=== PATIENT | male | born 1960 | race Caucasian/White ===

== ENCOUNTER 2021-01-08 03:31 | Emergency (ER) | payer OTHER, SELFPAY ==
[2021-01-08] VITALS (18 sets, daily range): BP systolic 119–201; BP diastolic 68–100; PULSE 40–85; RESP 12–24; TEMP 36.7–36.8; O2SAT 97–100; BMI 22.3
--- NOTE | 2021-01-08 | ECG_ITS ---
Test Reason : BRADYCARDIA Blood Pressure : / mmHG Vent. Rate : 070 BPM Atrial Rate : 070 BPM P-R Int : 160 ms QRS Dur : 092 ms QT Int : 424 ms P-R-T Axes : 067 005 057 degrees QTc Int : 457 ms Normal sinus rhythm Normal ECG When compared with ECG of 08-JAN-2021 04:08, Premature ventricular complexes are no longer Present T wave inversion no longer evident in Inferior leads QT has shortened Referred By: Ana Justin Electronically Signed By:CAMRON ELIZABETH
--- NOTE | 2021-01-08 | ECG_ITS ---
Test Reason : SYNCOPE Blood Pressure : / mmHG Vent. Rate : 079 BPM Atrial Rate : 079 BPM P-R Int : 150 ms QRS Dur : 094 ms QT Int : 462 ms P-R-T Axes : 089 004 024 degrees QTc Int : 529 ms Normal sinus rhythm with Premature ventricular complexes in a pattern of bigeminy Nonspecific T wave abnormality Prolonged QT Right atrial enlargement Abnormal ECG No previous ECGs available Referred By: Ana Justin Electronically Signed By:CAMRON ELIZABETH
--- NOTE | ~2021-01-08 | CT_ITS ---
EXAMINATION: NONCONTRAST HEAD CT NONCONTRAST CERVICAL SPINE CT INDICATION INFORMATION: Syncopal episodes. COMPARISON: None TECHNIQUE: Separate noncontrast CT examinations of the head and cervical spine were performed. Coronal and sagittal images were created for each examination at the technologist workstation. This CT examination was performed using dose optimization techniques as appropriate, variously including the following: *Automated exposure control *Adjustment of mA and/or kV according to patient size (this includes techniques or standardized protocols for targeted exams where dose is matched to indication/reason for exam; i.e. extremities or head) *Use of iterative reconstruction technique DLP: 998 mGy-cm FINDINGS: Head: There is no evidence of acute intracranial hemorrhage or territorial infarction. No abnormal mass effect or midline shift is seen. Fox to white matter differentiation is well preserved. No extra-axial fluid collections are identified. No hydrocephalus. No significant volume loss. There is no abnormal attenuation within the brain parenchyma. No acute osseous or soft tissue abnormality. The mastoid air cells and visualized portions of the paranasal sinuses are well aerated. Cervical spine: There is anatomic alignment of the vertebral bodies and posterior elements. The atlantoaxial and atlantooccipital articulations are intact. Vertebral body heights are maintained. Mild disc space narrowing at C5-C6 with small endplate osteophytes. No evidence of acute fracture. No prevertebral soft tissue swelling. Mild paraseptal emphysema noted at the lung apices. Tracheal secretions noted. Gas-filled area anterior to the left lung is likely associated with the lung extending into this region more inferiorly, non the [id number] of this study. The thyroid gland is unremarkable. CT/CT head/brain wo con IMPRESSION: 1. No acute intracranial findings. 2. No acute fracture or malalignment of the cervical spine. Mild degenerative change.
--- NOTE | ~2021-01-08 | CT_ITS ---
EXAMINATION: NONCONTRAST HEAD CT NONCONTRAST CERVICAL SPINE CT INDICATION INFORMATION: Syncopal episodes. COMPARISON: None TECHNIQUE: Separate noncontrast CT examinations of the head and cervical spine were performed. Coronal and sagittal images were created for each examination at the technologist workstation. This CT examination was performed using dose optimization techniques as appropriate, variously including the following: *Automated exposure control *Adjustment of mA and/or kV according to patient size (this includes techniques or standardized protocols for targeted exams where dose is matched to indication/reason for exam; i.e. extremities or head) *Use of iterative reconstruction technique DLP: 998 mGy-cm FINDINGS: Head: There is no evidence of acute intracranial hemorrhage or territorial infarction. No abnormal mass effect or midline shift is seen. Fox to white matter differentiation is well preserved. No extra-axial fluid collections are identified. No hydrocephalus. No significant volume loss. There is no abnormal attenuation within the brain parenchyma. No acute osseous or soft tissue abnormality. The mastoid air cells and visualized portions of the paranasal sinuses are well aerated. Cervical spine: There is anatomic alignment of the vertebral bodies and posterior elements. The atlantoaxial and atlantooccipital articulations are intact. Vertebral body heights are maintained. Mild disc space narrowing at C5-C6 with small endplate osteophytes. No evidence of acute fracture. No prevertebral soft tissue swelling. Mild paraseptal emphysema noted at the lung apices. Tracheal secretions noted. Gas-filled area anterior to the left lung is likely associated with the lung extending into this region more inferiorly, non the [id number] of this study. The thyroid gland is unremarkable. CT/CT cervical spine wo con IMPRESSION: 1. No acute intracranial findings. 2. No acute fracture or malalignment of the cervical spine. Mild degenerative change.
[2021-01-08] MEDS: Magnesium Sulfate/H2O 2 GM/50 ML PIGGYBACK IV (04:01)
[2021-01-08 04:09] LABS: Basophils Percent Auto 0.3 % (0-2); Eosinophils Absolute Auto 0.2 X10*3/uL (0.0-0.4); Eosinophils Percent Auto 1.1 % (0-4); Hematocrit 38.2 % (42-52); Hemoglobin 13.2 g/dl (14.0-18.0); Imm Gran Abs Auto 0.04 X10*3/uL (0.00-0.03); Imm Gran Pct Auto 0.3 % (0.0-0.4); Lymphocytes Absolute Auto 3.9 X10*3/uL (1.2-4.9); Lymphocytes Percent Auto 29.1 % (20-40); MANUAL DIFF FLAG NO; Mean Corpuscular HGB Conc 34.6 g/dl (31.0-36.0); Mean Corpuscular Hemoglobin 31.2 pg (27.0-33.0); Mean Corpuscular Volume 90.3 fL (80-98); Mean Platelet Volume 9.9 fL (9.4-12.4); Monocytes Absolute Auto 0.9 X10*3/uL (0.1-1.2); Monocytes Percent Auto 6.9 % (2-11); Neutrophils Absolute Auto 8.3 X10*3/uL (2.0-8.3); Neutrophils Percent Auto 62.3 % (45-73); Platelet Count 224 X10*3/uL (160-400); Red Blood Count 4.23 X10*6/uL (4.60-5.80); Red Cell Distribution Width 13.1 % (11.0-16.0); White Blood Count 13.4 X10*3/uL (4.8-10.8)
--- NOTE | 2021-01-08 04:09 | PC.NURSE ---
This RN rec'd limited report from EMS 2/2 language barrier. Pt Italian speaking only and EMS Burmese speaking only. This RN to bedside to perform triage assessment with use of video staff interpreter. Pt placed on vehicle body sander. Pt with frequent PVCs, appears to be in bigeminy. This RN obtaining EKG and notes pt to have few second run of vtach on bedside monitor. Dr Justin, patient services assistant Lo Khan RN and SIXTO [place] to bedside. 2 PIV established. Labs obtained. Mag 2g hung per Dr Justin. Pacer pads placed onto patient anterior-posterior. Pt connected to zoll.
[2021-01-08 04:14] LABS: INTERNATIONAL NORM RATIO 1.2 (0.9-1.1); Prothrombin Time 13.3 SEC (9.9-13.0)
[2021-01-08] MEDS: ondansetron HCL 4 MG/2 ML VIAL IVPUSH (04:17)
[2021-01-08 04:26] LABS: Ethanol < 10 mg/dL
[2021-01-08 04:31] LABS: COVID-19 Test Negative (Negative); IDNOW Serial# 9DD0AD1C
[2021-01-08 04:33] LABS: B Type Natriuretic Peptide 59 pg/mL (<100); Troponin-I High Sensitivity 22.2 ng/L (<3.5-35.0)
[2021-01-08] MEDS: 0.9 % Sodium Chloride 1,000 ML 999 ML IV (04:39)
[2021-01-08 04:44] LABS: Alanine Aminotransferase 23 U/L (0-40); Albumin Level 4.7 g/dL (3.5-5.0); Alkaline Phosphatase 77 U/L (39-117); Anion Gap 15 (12-20); Aspartate Amino Transferase 23 U/L (5-37); Bilirubin Direct 0.5 mg/dL (0.0-0.5); Bilirubin Total 1.3 mg/dL (0.0-1.0); Blood Urea Nitrogen 15 mg/dL (9-16); Calcium 9.7 mg/dL (8.4-10.2); Carbon Dioxide 28 mmol/L (22-29); Chloride 100 mmol/L (96-108); Creatinine Clr Calc Pharmacy 89.5; Estimated Glomerular Filt Rate > 60; Glucose Random 112 mg/dL (60-115); Magnesium 1.9 mg/dL (1.6-2.6); Potassium 2.9 mmol/L (3.3-5.1); Sodium 140 mmol/L (135-145); Total Protein 7.8 g/dL (6.5-8.0)
[2021-01-08] MEDS: Lidocaine HCl/PF 100 MG/5 ML SYRINGE 50 MG IV (05:04)
[2021-01-08] MEDS: Lidocaine HCl/D5W 2 GM/250 ML IV.SOLN IVCONT (05:05)
[2021-01-08] MEDS: Potassium Chloride Packet 20 MEQ PACKET 40 MEQ PO (05:05)
[2021-01-08] MEDS: Potassium Chloride/H20 10 MEQ/100 ML PIGGYBACK 100 MEQ IV ×4 (05:09→08:28)
--- NOTE | 2021-01-08 05:29 | PC.NURSE ---
VS documented with HR in 40s were taken manually as radial pulses.
[2021-01-08 05:40] LABS: Amphetamine Screen Urine Not Detected (Not Detect); Barbiturates, Urine Not Detected (Not Detect); Benzodiazepines Screen Urine POSITIVE (Not Detect); Cannabinoid Screen Urine POSITIVE (Not Detect); Cocaine Screen Urine POSITIVE (Not Detect); Fentanyl, urine POSITIVE (Not Detect); Opiate Screen Urine Not Detected (Not Detect); Phencyclidine Screen Urine Not Detected (Not Detect)
--- NOTE | 2021-01-08 05:54 | ED_ITS ---
HPI - General Adult General Chief complaint: Syncope Stated complaint: Fall Time Seen by Provider: 01/08/21 03:59 Source: patient and EMS Mode of arrival: EMS Limitations: no limitations History of Present Illness HPI narrative: Patient comes to the emergency room complaining of for syncopal episodes. Patient states that he is at risk, and then wakes up on the floor. The last time that he fell, he hit his head, complaining of localized pain. Patient states that he does not remember passing out. Only remembers his daughter waking him up. Patient denies chest pain, no shortness of breath. Patient states that prior to the syncopal episodes, he was feeling dizzy, feeling that his vision was getting blurry, sometimes it resolved without passing out, but other times he would be completely unconscious. At this time, patient states that he is not dizzy, no chest pain or shortness of breath. Patient states that to his knowledge he has no cardiac history. Related Data Home Medications Medication Instructions Recorded Confirmed alprazolam 2 mg tablet 2 mg PO TID 01/08/21 01/08/21 methadone 10 mg/mL oral concentrate 105 mg 01/08/21 Allergies Allergy/AdvReac Type Severity Reaction Status Date / Time No Known Allergies Allergy Verified 01/08/21 03:41 Review of Systems Review of Systems: Constitutional : No Weight loss, No Fever, No Chills, No Night Sweats, No Fatigue, No Malaise ENT/Mouth : No Hearing loss, No Ear Pain, No Nasal Congestion, No Sinus Pain, No Hoarseness, No sore throat, No Rhinorrhea, No Swallowing Difficulty Eyes: No Eye Pain, No Swelling, No Redness, No Foreign Body, No Discharge, No Vision Changes Cardiovascular : No Chest Pain, No SOB, No Dyspnea on Exertion, No Orthopnea, no edema, complaining of occasional palpitations, complaining of syncopal episodes at rest Respiratory : No Cough, No Sputum, No Wheezing, No Smoke Exposure, No Dyspnea Gastrointestinal : No Nausea, No Vomiting, No Diarrhea, No Constipation, No abdominal Pain, No Hematochezia, No Melena Genitourinary : no irregular bleeding, No Dysuria, No Urinary Frequency, No Hematuria, No Urinary Incontinence, No Urgency, No Flank Pain, No Urinary Flow Changes, No Hesitancy Musculoskeletal : No joint pain, No Myalgias, No Joint Swelling Skin : No Skin Lesions, No rash Neuro : No Weakness, No Numbness, No Paresthesias, multiple episodes of loss of consciousness, dizziness, multiple falls landing on his head. Psych : No Anxiety/Panic, No Depression, No SI/HI/AH/VH, No Social Issues, Heme/Lymph: No Bruising, No Bleeding,No Lymphadenopathy Endocrine : No Polyuria, No Polydipsia, No Temperature Intolerance [facility] Social History Social History Patient Tobacco Use Status: Current everyday Tobacco user Use of substances other than those prescribed or required for medical reasons: Yes Substance Use Type: Crack/Cocaine Advance Directives: No Physical Exam Vital Signs: Vital Signs: Last Vital Signs Temp 98.2 F 01/08/21 03:58 Pulse 74 01/08/21 06:47 Resp 18 01/08/21 06:47 BP 130/81 01/08/21 06:47 Pulse Ox 98 01/08/21 06:47 Body Mass Index 22.3 Const: Other: Appearance: Alert. Oriented X3. No acute distress. Eyes: Pupils equal, round and reactive to light. ENT: Pharynx normal. Neck: On C-collar, no pain to palpation over the C-spine, no palpable step-offs CVS: Normal heart rate and rhythm. Pulses normal. Normal S1 and S2 Respiratory: No respiratory distress. Breath sounds normal. No Wheezing. No rales Abdomen: Soft and nontender. No rigidity. No distention. good BS x4 Skin: Skin warm mildly clammy, normal skin color. Patient does have ecchymosis to the forehead on the right side, abrasions, no deep lacerations Extremities: No lower extremity edema. No lower extremity edema. No Lacerations. No Rash Neuro: Oriented X 3. No motor deficit. No sensory deficit. Moving all extermities. No slurred speech. Course Course Course Narrative: Patient has had multiple episodes, patient's rhythm on EKG varies between sinus rhythm, bigeminy, QTC ranges between 400 to 595. Patient had multiple episodes of polymorphic ventricular tachycardia. Patient was given 1 dose of IV magnesium 2 g, patient converted into sinus rhythm. But soon after, patient return to bigeminy. Patient blood pressure has been constantly elevated between 172-100 systolic. I discussed the case with Dr. Shearer and Dr. Tomlin. Patient was given 1 bolus of 50 mg of lidocaine, patient was started on a lidocaine drip at 2 milligrams/minute. Patient converted into sinus rhythm. Patient was noted to have hypokalemia as well. 40 meq of p.o. potassium were given p.o., and patient is getting 10 meq of potassium IV per hour, 4 bags in total are to be given back to back Eventually, it is likely that the patient will need a pacemaker Once patient became stable, we were able to scan the patient's head and neck. Unfortunately, we do not have ICU beds available, patient is to be transferred to [facility] I discussed the pt wiht Dr. Fall from [facility] cardiology, transfer/cardiology call back pending. Patient continues on 2 milligrams/minute of lidocaine, rickie ent asymptomatic, stable, heart rate 76, blood pressure 147/79, sinus rhythm Sign out given to Dr. Garcia Medical Decision Making Lab Data Result diagrams: 01/08/21 04:03 01/08/21 04:03 Labs: Lab Results 01/08/21 01/08/21 01/08/21 Range/Units 04:03 04:03 04:03 WBC 13.4 H (4.8-10.8) X10*3/uL RBC 4.23 L (4.60-5.80) X10*6/uL Hgb 13.2 L (14.0-18.0) g/dl Hct 38.2 L (42-52) % MCV 90.3 (80-98) fL MCH 31.2 (27.0-33.0) pg MCHC 34.6 (31.0-36.0) g/dl RDW 13.1 (11.0-16.0) % Plt Count 224 (160-400) X10*3/uL MPV 9.9 (9.4-12.4) fL Immature Gran % (Auto) 0.3 (0.0-0.4) % Neut % (Auto) 62.3 (45-73) % Lymph % (Auto) 29.1 (20-40) % [place] % (Auto) 6.9 (2-11) % Eos % (Auto) 1.1 (0-4) % Baso % (Auto) 0.3 (0-2) % Lymph # (Auto) 3.9 (1.2-4.9) X10*3/uL [place] # (Auto) 0.9 (0.1-1.2) X10*3/uL Eos # (Auto) 0.2 (0.0-0.4) X10*3/uL Baso # (Auto) 0.0 (0.0-0.2) X10*3/uL Abs Immat Gran (auto) 0.04 H (0.00-0.03) X10*3/uL Absolute Neuts (auto) 8.3 (2.0-8.3) X10*3/uL Absolute Nucleated RBC 0.000 (0.0-0.012) X10*3/uL Nucleated RBC % (auto) 0.0 (0.0-0.2) /100WBC PT 13.3 H (9.9-13.0) SEC INR 1.2 H (0.9-1.1) Sodium 140 (135-145) mmol/L Potassium 2.9 L (3.3-5.1) mmol/L Chloride 100 (96-108) mmol/L Carbon Dioxide 28 (22-29) mmol/L Anion Gap 15 (12-20) BUN 15 (9-16) mg/dL Creatinine 0.75 (0.5-1.4) mg/dL Estim Creat Clear Calc 89.5 Estimated GFR > 60 Random Glucose 112 (60-115) mg/dL Calcium 9.7 (8.4-10.2) mg/dL Magnesium 1.9 (1.6-2.6) mg/dL Total Bilirubin 1.3 H (0.0-1.0) mg/dL Direct Bilirubin 0.5 (0.0-0.5) mg/dL AST 23 (5-37) U/L ALT 23 (0-40) U/L Alkaline Phosphatase 77 (39-117) U/L Troponin I High Sens (<3.5-35.0) ng/L B-Natriuretic Peptide (<100) pg/mL Total Protein 7.8 (6.5-8.0) g/dL Albumin 4.7 (3.5-5.0) g/dL Urine Opiates Screen (Not Detect) Urine Fentanyl Screen (Not Detect) Ur Barbiturates Screen (Not Detect) Ur Phencyclidine Scrn (Not Detect) Ur Amphetamines Screen (Not Detect) U Benzodiazepines Scrn (Not Detect) Urine Cocaine Screen (Not Detect) U Marijuana (THC) Screen (Not Detect) Ethyl Alcohol mg/dL COVID-19 (HAZEL) (Negative) COVID-19 Clin Com 01/08/21 01/08/21 01/08/21 Range/Units 04:03 04:03 04:08 WBC (4.8-10.8) X10*3/uL RBC (4.60-5.80) X10*6/uL Hgb (14.0-18.0) g/dl Hct (42-52) % MCV (80-98) fL MCH (27.0-33.0) pg MCHC (31.0-36.0) g/dl RDW (11.0-16.0) % Plt Count (160-400) X10*3/uL MPV (9.4-12.4) fL Immature Gran % (Auto) (0.0-0.4) % Neut % (Auto) (45-73) % Lymph % (Auto) (20-40) % [place] % (Auto) (2-11) % Eos % (Auto) (0-4) % Baso % (Auto) (0-2) % Lymph # (Auto) (1.2-4.9) X10*3/uL [place] # (Auto) (0.1-1.2) X10*3/uL Eos # (Auto) (0.0-0.4) X10*3/uL Baso # (Auto) (0.0-0.2) X10*3/uL Abs Immat Gran (auto) (0.00-0.03) X10*3/uL Absolute Neuts (auto) (2.0-8.3) X10*3/uL Absolute Nucleated RBC (0.0-0.012) X10*3/uL Nucleated RBC % (auto) (0.0-0.2) /100WBC PT (9.9-13.0) SEC INR (0.9-1.1) Sodium (135-145) mmol/L Potassium (3.3-5.1) mmol/L Chloride (96-108) mmol/L Carbon Dioxide (22-29) mmol/L Anion Gap (12-20) BUN (9-16) mg/dL Creatinine (0.5-1.4) mg/dL Estim Creat Clear Calc Estimated GFR Random Glucose (60-115) mg/dL Calcium (8.4-10.2) mg/dL Magnesium (1.6-2.6) mg/dL Total Bilirubin (0.0-1.0) mg/dL Direct Bilirubin (0.0-0.5) mg/dL AST (5-37) U/L ALT (0-40) U/L Alkaline Phosphatase (39-117) U/L Troponin I High Sens 22.2 (<3.5-35.0) ng/L B-Natriuretic Peptide 59 (<100) pg/mL Total Protein (6.5-8.0) g/dL Albumin (3.5-5.0) g/dL Urine Opiates Screen (Not Detect) Urine Fentanyl Screen (Not Detect) Ur Barbiturates Screen (Not Detect) Ur Phencyclidine Scrn (Not Detect) Ur Amphetamines Screen (Not Detect) U Benzodiazepines Scrn (Not Detect) Urine Cocaine Screen (Not Detect) U Marijuana (THC) Screen (Not Detect) Ethyl Alcohol < 10 mg/dL COVID-19 (HAZEL) Negative (Negative) COVID-19 Clin Com See Note 01/08/21 Range/Units 05:11 WBC (4.8-10.8) X10*3/uL RBC (4.60-5.80) X10*6/uL Hgb (14.0-18.0) g/dl Hct (42-52) % MCV (80-98) fL MCH (27.0-33.0) pg MCHC (31.0-36.0) g/dl RDW (11.0-16.0) % Plt Count (160-400) X10*3/uL MPV (9.4-12.4) fL Immature Gran % (Auto) (0.0-0.4) % Neut % (Auto) (45-73) % Lymph % (Auto) (20-40) % [place] % (Auto) (2-11) % Eos % (Auto) (0-4) % Baso % (Auto) (0-2) % Lymph # (Auto) (1.2-4.9) X10*3/uL [place] # (Auto) (0.1-1.2) X10*3/uL Eos # (Auto) (0.0-0.4) X10*3/uL Baso # (Auto) (0.0-0.2) X10*3/uL Abs Immat Gran (auto) (0.00-0.03) X10*3/uL Absolute Neuts (auto) (2.0-8.3) X10*3/uL Absolute Nucleated RBC (0.0-0.012) X10*3/uL Nucleated RBC % (auto) (0.0-0.2) /100WBC PT (9.9-13.0) SEC INR (0.9-1.1) Sodium (135-145) mmol/L Potassium (3.3-5.1) mmol/L Chloride (96-108) mmol/L Carbon Dioxide (22-29) mmol/L Anion Gap (12-20) BUN (9-16) mg/dL Creatinine (0.5-1.4) mg/dL Estim Creat Clear Calc Estimated GFR Random Glucose (60-115) mg/dL Calcium (8.4-10.2) mg/dL Magnesium (1.6-2.6) mg/dL Total Bilirubin (0.0-1.0) mg/dL Direct Bilirubin (0.0-0.5) mg/dL AST (5-37) U/L ALT (0-40) U/L Alkaline Phosphatase (39-117) U/L Troponin I High Sens (<3.5-35.0) ng/L B-Natriuretic Peptide (<100) pg/mL Total Protein (6.5-8.0) g/dL Albumin (3.5-5.0) g/dL Urine Opiates Screen Not Detected (Not Detect) Urine Fentanyl Screen POSITIVE H (Not Detect) Ur Barbiturates Screen Not Detected (Not Detect) Ur Phencyclidine Scrn Not Detected (Not Detect) Ur Amphetamines Screen Not Detected (Not Detect) U Benzodiazepines Scrn POSITIVE H (Not Detect) Urine Cocaine Screen POSITIVE H (Not Detect) U Marijuana (THC) Screen POSITIVE H (Not Detect) Ethyl Alcohol mg/dL COVID-19 (HAZEL) (Negative) COVID-19 Clin Com Imaging Data Head and cervical spine CT: Radiologist's impression: Head: There is no evidence of acute intracranial hemorrhage or territorial infarction. No abnormal mass effect or midline shift is seen. Fox to white matter differentiation is well preserved. No extra-axial fluid collections are identified. No hydrocephalus. No significant volume loss. There is no abnormal attenuation within the brain parenchyma. No acute osseous or soft tissue abnormality. The mastoid air cells and visualized portions of the paranasal sinuses are well aerated. Cervical spine: There is anatomic alignment of the vertebral bodies and posterior elements. The atlantoaxial and atlantooccipital articulations are intact. Vertebral body heights are maintained. Mild disc space narrowing at C5-C6 with small endplate osteophytes. No evidence of acute fracture. No prevertebral soft tissue swelling. Mild paraseptal emphysema noted at the lung apices. Tracheal secretions noted. Gas-filled area anterior to the left lung is likely associated with the lung extending into this region more inferiorly, non the [id number] of this study. The thyroid gland is unremarkable. CT/CT head/brain wo con IMPRESSION: ? 1. No acute intracranial findings. 2. No acute fracture or malalignment of the cervical spine. Mild degenerative change. ECG Data Attestation: I personally reviewed and interpreted this ECG as follows: (Heart rate 80, bigeminy with multiple PVCs, QTC 595) Critical Care Time Critical Care Time Critical Care Time: Yes Total Critical Care Time: 120 Attestation: 120 minutes were spent stabilizing the patient, direct patient care and in consultations Discharge Plan Discharge Clinical Impression: Polymorphic ventricular tachycardia, Dizziness, Syncope, Multiple contusions, Acute hypokalemia Patient Disposition: [facility] Transfer Details: [facility] cardiac unit Prescriptions: No Action alprazolam 2 mg Tablet 2 mg PO TID RF: 0 methadone 10 mg/mL Concentrate 105 mg RF: 0
--- NOTE | 2021-01-08 05:55 | PC.NURSE ---
Pt to ED CT with ths RN on zoll. Pt NSR on zoll through CT. Pt returned to room and returned to bedside cardiac specialist without incidence. Pt remains on zoll. Pt placed on EKG machine for serial EKGs if indicated.
[2021-01-08] MEDS: Prochlorperazine Edisylate 10 MG/2 ML VIAL 5 MG IVPUSH (06:21)
--- NOTE | 2021-01-08 06:42 | PC.NURSE ---
call out to [facility] hospital transfer line
--- NOTE | 2021-01-08 06:48 | PC.NURSE ---
Pt ccollar removed
--- NOTE | 2021-01-08 07:13 | PC.NURSE ---
received report from gabriel morillo pt is currently resting comfortably in the stretcher, respirations even and unlabored, denies chest pain/sob/dizziness at this time ns on the monitor vs stable at hr 68 bp 162/75 , 99% on room air pt is on pacer pads and the zoll
--- NOTE | 2021-01-08 09:05 | PC.NURSE ---
CALL OUT @ THIS TIME TO [facility] PT PLACEMENT LINE TO FIND OUT ABOUT ROOM ASSIGNMENT ARABELLA ANSWERS, STILL WAITING FOR CALL FROM DR RUVALCABA, NO BED ASSIGNMENT REQUEST GIVEN BY DR RUVALCABA
--- NOTE | 2021-01-08 09:44 | PC.NURSE ---
PT STARTED BACK IN [facility] HR 93, BP 167/989
--- NOTE | 2021-01-08 09:47 | PC.NURSE ---
PT BACK IN [facility]
--- NOTE | 2021-01-08 10:16 | PC.NURSE ---
@10:15AM RETURN CALL FROM [facility] PT TX LINE FELISA SAYS THE PT WILL BE GOING TO CARD STEP DOWN AND ASKS FOR COVID STATUS, WILL CALL BACK WITH BED ASSIGNMENT WHEN BE READY, DR MARQUEZ AWARE
--- NOTE | 2021-01-08 11:18 | P.CONCA_ITS ---
History of Present Illness History of Present Illness Date of Service: 01/08/21 Requesting physician: Sanam Garcia Chief complaint: Polymorphic ventricular tachycardia, prolonged QT. Narrative: 60-year-old gentleman presented with syncope. He said he had 4 episodes of syncope where he blacked out. He has wound on his head on the right side. He is denying any chest pain or shortness of breath. His initial EKG showed ventricular bigeminy with prolonged QT interval. He was also noticed to be significantly hypokalemic and was given potassium and magnesium supplements. He was started on lidocaine drip and since then he has improved. Initially he also had R on T phenomenon and a short run of torsades in the emergency department. On lidocaine drip he has been stable and is denying any symptoms. He has been on methadone previously his drug screen is also positive for multiple drugs. He is saying that he was using heroin and cocaine. Urine drug screen is positive for fentanyl, benzodiazepines, cocaine and marijuana. Review of Systems Review of Systems: Currently asymptomatic. Yes all other systems are reviewed and are negative PMFSH Social History Social History Patient Tobacco Use Status: Current everyday Tobacco user Use of substances other than those prescribed or required for medical reasons: Yes Substance Use Type: Crack/Cocaine Advance Directives: No Meds Allergies Allergy/AdvReac Type Severity Reaction Status Date / Time No Known Allergies Allergy Verified 01/08/21 03:41 Active Medications: Current Medications Generic Name Dose Route Start Last Admin Trade Name Freq PRN Reason Stop Dose Admin Lidocaine HCl/Dextrose 2 gm in 250 mls @ 15 mls/hr 01/08/21 05:00 01/08/21 05:05 IVCONT 2 mg/min .[id number] HORTENSIA 15 mls/hr Administration 2 MG/MIN Pharmacy Consult 1 each 01/08/21 11:13 Consult Rx Perform Med Rec MISCELLANE ONCE PRN Consult order Home Medications Medication Instructions Recorded Confirmed Last Taken Type alprazolam 2 mg tablet 2 mg PO TID 01/08/21 01/08/21 Unknown History methadone 10 mg/mL oral concentrate 105 mg PO DAILY@1200 01/08/21 01/08/21 01/08/21 History Physical Exam Vital Signs: Vital Signs: Last Vital Signs Temp 98.2 F 01/08/21 03:58 Pulse 68 01/08/21 09:32 Resp 18 01/08/21 09:32 BP 152/68 H 01/08/21 09:32 Pulse Ox 99 01/08/21 09:32 Body Mass Index 22.3 GENERAL APPEARANCE: in no acute distress, pleasant. Abrasion right gnosticism. NECK: no carotid bruit, no jugular venous distention. SKIN: no suspicious lesions, warm and dry. HEART: no murmurs, regular rate and rhythm. LUNGS: clear to auscultation bilaterally. ABDOMEN: soft, nontender. EXTREMITIES: no edema. PERIPHERAL PULSES: equal. NEUROLOGIC: No gross deficits, AAO X 3 Results Labs and Meds Result diagrams: 01/08/21 04:03 01/08/21 04:03 Lab results: Laboratory Results - last 24 hr 01/08/21 01/08/21 01/08/21 04:03 04:03 04:03 WBC 13.4 H RBC 4.23 L Hgb 13.2 L Hct 38.2 L MCV 90.3 MCH 31.2 MCHC 34.6 RDW 13.1 Plt Count 224 MPV 9.9 Immature Gran % (Auto) 0.3 Neut % (Auto) 62.3 Lymph % (Auto) 29.1 [place] % (Auto) 6.9 Eos % (Auto) 1.1 Baso % (Auto) 0.3 Lymph # (Auto) 3.9 [place] # (Auto) 0.9 Eos # (Auto) 0.2 Baso # (Auto) 0.0 Abs Immat Gran (auto) 0.04 H Absolute Neuts (auto) 8.3 Absolute Nucleated RBC 0.000 Nucleated RBC % (auto) 0.0 PT 13.3 H INR 1.2 H Sodium 140 Potassium 2.9 L Chloride 100 Carbon Dioxide 28 Anion Gap 15 BUN 15 Creatinine 0.75 Estim Creat Clear Calc 89.5 Estimated GFR > 60 Random Glucose 112 Calcium 9.7 Magnesium 1.9 Total Bilirubin 1.3 H Direct Bilirubin 0.5 AST 23 ALT 23 Alkaline Phosphatase 77 Troponin I High Sens B-Natriuretic Peptide Total Protein 7.8 Albumin 4.7 Urine Opiates Screen Urine Fentanyl Screen Ur Barbiturates Screen Ur Phencyclidine Scrn Ur Amphetamines Screen U Benzodiazepines Scrn Urine Cocaine Screen U Marijuana (THC) Screen Ethyl Alcohol COVID-19 (HAZEL) COVID-19 Clin Com 01/08/21 01/08/21 01/08/21 04:03 04:03 04:08 WBC RBC Hgb Hct MCV MCH MCHC RDW Plt Count MPV Immature Gran % (Auto) Neut % (Auto) Lymph % (Auto) [place] % (Auto) Eos % (Auto) Baso % (Auto) Lymph # (Auto) [place] # (Auto) Eos # (Auto) Baso # (Auto) Abs Immat Gran (auto) Absolute Neuts (auto) Absolute Nucleated RBC Nucleated RBC % (auto) PT INR Sodium Potassium Chloride Carbon Dioxide Anion Gap BUN Creatinine Estim Creat Clear Calc Estimated GFR Random Glucose Calcium Magnesium Total Bilirubin Direct Bilirubin AST ALT Alkaline Phosphatase Troponin I High Sens 22.2 B-Natriuretic Peptide 59 Total Protein Albumin Urine Opiates Screen Urine Fentanyl Screen Ur Barbiturates Screen Ur Phencyclidine Scrn Ur Amphetamines Screen U Benzodiazepines Scrn Urine Cocaine Screen U Marijuana (THC) Screen Ethyl Alcohol < 10 COVID-19 (HAZEL) Negative COVID-19 tripJane Com See Note 01/08/21 05:11 WBC RBC Hgb Hct MCV MCH MCHC RDW Plt Count MPV Immature Gran % (Auto) Neut % (Auto) Lymph % (Auto) [place] % (Auto) Eos % (Auto) Baso % (Auto) Lymph # (Auto) [place] # (Auto) Eos # (Auto) Baso # (Auto) Abs Immat Gran (auto) Absolute Neuts (auto) Absolute Nucleated RBC Nucleated RBC % (auto) PT INR Sodium Potassium Chloride Carbon Dioxide Anion Gap BUN Creatinine Estim Creat Clear Calc Estimated GFR Random Glucose Calcium Magnesium Total Bilirubin Direct Bilirubin AST ALT Alkaline Phosphatase Troponin I High Sens B-Natriuretic Peptide Total Protein Albumin Urine Opiates Screen Not Detected Urine Fentanyl Screen POSITIVE H Ur Barbiturates Screen Not Detected Ur Phencyclidine Scrn Not Detected Ur Amphetamines Screen Not Detected U Benzodiazepines Scrn POSITIVE H Urine Cocaine Screen POSITIVE H U Marijuana (THC) Screen POSITIVE H Ethyl Alcohol COVID-19 (HAZEL) COVID-19 Clin Com Imaging Radiologist's impression: Impressions Cervical Spine CT 01/08/21 04:00 IMPRESSION: 1. No acute intracranial findings. 2. No acute fracture or malalignment of the cervical spine. Mild degenerative change. Head CT 01/08/21 04:00 IMPRESSION: 1. No acute intracranial findings. 2. No acute fracture or malalignment of the cervical spine. Mild degenerative change. Assessment and Plan (1) Syncope: Status: Acute (2) Polymorphic ventricular tachycardia: Status: Acute (3) Acute hypokalemia: Status: Acute 60-year-old gentleman with background drug abuse was presenting for syncope. He had a run of polymorphic ventricular tachycardia in the emergency department. Initially he had ventricular bigeminy and 1 run of polymorphic VT which was self-limiting. His potassium has been replaced. He also received magnesium. He was started on lidocaine drip. On lidocaine drip he has been stable and has not had further premature ventricular complexes or runs of torsades. We currently do not have any ICU beds available. Case has been discussed by ER with [facility] for transfer to the cardiology service and I agree with that. I think the likely issue is hypokalemia in this gentleman. As his electrolytes are repleted the lidocaine drip should be stopped to see how he reacts to that. If he has persistent runs of polymorphic VT as well as prolonged QT interval then mexiletine can be started which may help shorten his QT interval and further runs. I do not think he needs temporary pacemaker right now because his premature ventricle complexes which led to R on T phenomenon and torsades previously have improved with lidocaine and electrolyte replacement. Thank you for allowing me to participate in the care of your patient. Please feel free to contact me if you have any questions. Procedures Date of Service Date of Service: 01/08/21
--- NOTE | 2021-01-08 14:35 | PC.NURSE ---
@ THIS TIME [facility] PT TX LINE CALL FOR BED ASSIGNMENT STATUS Werner ANSWERS AND SAYS THEY ARE STILL WORKING ON BED ASSIGNMENT FOR THIS PT AND WILL CALL US SOON THEY HAVE A ROOM ASSIGNMENT AVAILABLE
--- NOTE | 2021-01-08 14:37 | PC.NURSE ---
DOCUMENTED EKG FOR ID#[id number]
== END 2021-01-08 16:50 | disposition short-term general hospital (02) ==
PROVIDERS: Emergency Provider Emergency Medicine
DX: R55 Syncope and collapse (principal); E87.6 Hypokalemia; I47.2 Ventricular tachycardia; M54.2 Cervicalgia; M54.5 Low back pain; Z79.899 Other long term (current) drug therapy; Z20.822 Contact with and (suspected) exposure to COVID-19
CPT/HCPCS: 36415; 70450; 72125; 80048; 80076; 80307; 82077; 83735; 83880; 84484; 85025; 85610; 87635; 93005; 96361; 96365; 96366; 96367; 96375; 99285; 99291; 99292; J2405; J3475